=== PATIENT | male | born 1940 | race Caucasian/White ===

== ENCOUNTER 2019-03-25 17:09 | Inpatient (IN) ==
--- NOTE | 2019-03-25 18:54 | Diag Imaging Result Doc PS360 ---
EXAM: CT RENAL STONE SEARCH HISTORY: Kidney stone left TECHNIQUE: CT abdomen and pelvis without contrast COMPARISON: 03/09/2019 FINDINGS: The previously described stone is still within the left ureter although now is in the distal left ureter. There continues to be moderate to marked hydronephrosis. There are also stones within a contracted gallbladder. No bowel obstruction. No other changes to the organs in the abdomen and pelvis. Decreased constipation. IMPRESSION: 1.Persistent moderate to severe left-sided hydronephrosis although the large stone is now in the distal left ureter. 2.Cholelithiasis This exam was performed using automated exposure control, adjustment of mA or kV according to patient size, and/or use of iterative reconstruction technique. Electronically signed by Jose F Persaud 03/25/2019 6:52 PM
[2019-03-25 19:59] LABS: AGAP 12; BASO# 0.04 X1000 (0.0-0.2); BASO% 0.4 % (0.0-0.8); BUN 27 mg/dL (8-22); CALCIUM 9.4 mg/dL (8.8-10.2); CHLORIDE 103 mmol/L (98-107); COSMO 290; CREATININE 1.1 mg/dL (0.7-1.2); EOS# 0.27 X1000 (0.0-0.7); ESTIMATED GFR > 60; GLUCOSE 169 mg/dL (70-104); HEMATOCRIT 43.2 % (42.0-52.0); HEMOGLOBIN 14.4 g/dL (14.0-18.0); LYMPH# 1.76 X1000 (1.2-3.4); LYMPH% 19.3 % (20.5-51.1); MCH 31.8 PG (27-31); MCHC 33.3 g/dL (33-37); MCV 95.4 FL (81-99); MONO# 0.74 X1000 (0.11-0.59); MONO% 8.1 % (1.7-9.3); MPV 9.1 FL (7.4-10.4); NEUT# 6.29 X1000 (1.4-6.5); NEUT% 69.2 % (42.2-75.2); PLT 338 X1000 (130-400); POTASSIUM 4.2 mmol/L (3.5-5.1); RBC 4.53 XMIL (4.7-6.1); RDW 12.7 % (11.5-14.5); SODIUM 141 mmol/L (136-145); TCO2 26 mmol/L (25-35)
--- NOTE | 2019-03-25 21:27 | HISTORY AND PHYSICAL ---
CHIEF COMPLAINT: Abdominal pain, left side going to the groin since 2 weeks ago. HISTORY OF PRESENT ILLNESS: He is an 78-year-old white male who was seen in the emergency room on 03/09/2019. Apparently, the patient was seen in the emergency room and he had a workup done. The patient was sent home for diagnosis of constipation. The patient had a CT scan was done. He was sent home on the laxatives. Obviously, he was not getting better. He came to my office today as a followup. I did review the CT scan. Apparently, patient has gallstones and a 9 mm stone left proximal ureter with hydronephrosis. I did a KUB in my office, which showed the stone still present in the ureter. Constipation was better. He was seen before by Dr. Calabrese. I spoke to him on the telephone and he said to admitted to the hospital for observation and repeat CT scan and laboratory workup and we will schedule for the lithotripsy and cystoscopy in the morning. The family agreed to get admitted. As a result, a hospital admission was warranted. 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 PAST SURGICAL HISTORY: Sinus surgery, inguinal hernia repair on the right side, TURP, Pito fundoplication, left heart catheterization in 2009 with stents MEDICINES: In my office: Acyclovir 400 tablets as directed, Plavix 75 daily, Combivent 1 puff t.i.d., benazepril 10 mg daily, doxycycline 100 twice daily, Flonase as needed, folic acid 1 mg daily, methotrexate 2.5 tablets once a week, metoprolol 25 once daily, Singulair 10 daily, simvastatin 20 daily, Tricor 140 mg daily. ALLERGIES: Penicillin, sulfa, Jhony-Dur. SOCIAL HISTORY: He has been for 60 years, has 5 children. Retired from . No smoking. No alcohol. Lives in [place]. FAMILY HISTORY: Father at the age of 72 with heart attack. Mom in a house fire. HEALTH MAINTENANCE: Flu vaccine 2017, pneumococcal 2017. Last rectal exam July 2018. PSA July 2018, colonoscopy more than 10 years. REVIEW OF SYSTEMS: HEENT: No headache. No vision problem. No earache. No sore throat. Neck: No goiter. No lymphadenopathy. No bruit. Cardiopulmonary: No chest pain, shortness of breath, PND, orthopnea. GI: No nausea, vomiting, abdominal pain. : No history of hesitancy, frequency, dysuria, mostly pain in the left side. No swelling of feet. Neurologic: No focal symptoms or weakness. PHYSICAL EXAMINATION: VITAL SIGNS: Temperature is 97 degrees, pulse 62. Vitals are stable. Height is 5 feet 11, 180 pounds. HEENT: Atraumatic, normocephalic. Pupils equal, react to light. Nose and throat within normal limits. NECK: Supple. No lymphadenopathy. No goiter. CHEST: Bilateral air entry. HEART: Sounds are regular. ABDOMEN: Belly is soft, nontender. Flank tenderness noted. No signs of peritonitis. RECTAL: Deferred. NEUROLOGIC: No neurological deficits. INVESTIGATIONS: CBC: White cell count 9.1, hematocrit 43, platelet 338,000. Sodium 140, potassium 4.2, chloride 103, BUN 27, creatinine 1.2, glucose 169. ASSESSMENT AND PLAN: An 78-year-old white gentleman admitted to the hospital with left-sided flank pain due to obstructed ureter approximately 10 mm stone, no better since 2 weeks ago. The plan is to admit. IV fluids, pain control. Urology consult. CT renal stone search and reconcile home medications and we will follow up. cc: MD VIDYA Holt
[2019-03-25] MEDS: NS 1,000 ML IV SCH (22:04)
--- NOTE | 2019-03-26 07:49 | CONSULTATION ---
DATE OF CONSULTATION: 03/25/2019 ATTENDING/REFERRING PHYSICIAN: Dr. Tovar. HISTORY OF PRESENT ILLNESS: This 78-year-old male states he developed severe left flank pain several weeks ago. He was seen in the emergency room where a CT stone search revealed a large stone in the left proximal ureter causing hydronephrosis. He states he got better and decided not to follow up with his family physician as directed. He then again developed severe left flank pain yesterday. He saw Dr. Tovar where the large stone was still present. The patient has no prior history of stones. He is followed in Urology for enlarged prostate and obstructive voiding. He states that is going well. He states he needs to have the stone removed. PAST MEDICAL HISTORY: Cholelithiasis, chronic obstructive pulmonary disease, coronary artery disease, gastroesophageal reflux disease, elevated cholesterol, hearing loss, right eardrum perforation. CURRENT MEDICATIONS: Documented on his chart and include Plavix. PAST SURGICAL HISTORY: Transurethral resection of the prostate (TURP), sinus surgery, right inguinal hernia repair, Pito fundoplication, cardiac stent placement in 2009. SOCIAL HISTORY: He is allergic to penicillin, sulfa drugs and Jhony-dur. He has no current tobacco or alcohol use. REVIEW OF SYSTEMS: He states he is usually in good health. He denies any chest pains, diabetes, strokes or seizures. He states he is having some memory loss. PHYSICAL EXAMINATION: General: A mildly obese, age apparent, normally developed, white male, oriented in all ways and cooperative. HEENT: Normal for age. He is very hard of hearing. Lungs: Clear. Cardiovascular: Regular rate and rhythm. Abdomen: Protuberant soft, left flank tenderness. No guarding or rebound. No hepatosplenomegaly or masses. Genitourinary: Circumcised male. Both testes down. Scrotal exam is normal. Rectal: Deferred until surgery. Extremities: No clubbing, cyanosis, or edema. Neuro: No focal deficits. LABORATORY EVALUATION: White count of 9.1, hemoglobin 14.4, hematocrit of 43.2 and platelets are 338,000. Serum electrolytes are normal. BUN 27, creatinine 1.1. Urinalysis has positive blood on the dipstick, otherwise negative. CT renal stone search reveals a moderate left hydroureteronephrosis down to an approximate 8 to 9 mm stone in the left mid to distal ureter. IMPRESSION: Left ureteral stone causing moderate left hydronephrosis and flank pain. PLAN: Cystoscopic exam, left ureteroscopy, laser lithotripsy of the stone with basket extraction of fragments and placement of left double-J stent if needed. The planned procedure, benefits versus risks, and possible complications, including, but not limited to, bleeding, infection, not being able to get to the stone, need for further stone surgery, damage to the ureter with need for further surgery was discussed. He seems to understand and desires to proceed. cc: MD Palmer Ayala MD
[2019-03-26] MEDS: NS 1,000 ML IV SCH (10:24)
[2019-03-26] MEDS ORDERED: DIPRIVAN 1% ONE (14:59)
[2019-03-26] MEDS ORDERED: XYLOCAINE-MPF 2% ONE (14:59)
[2019-03-26] MEDS ORDERED: KEFZOL 2 GM/D5W 2 GM/50 ML IVPB ONE (15:11)
[2019-03-26] MEDS ORDERED: ZOFRAN ONE (15:33)
--- NOTE | 2019-03-26 15:57 | Diag Imaging Result Doc PS360 ---
EXAM: FLUROSCOPY CYSTO HISTORY: L URETER STONE, LASER LITHO TECHNIQUE: Eight films submitted COMPARISON: None. FINDINGS: A wire was placed into the left ureter. The stone in the distal left ureter was removed. A ureteral stent was then placed. IMPRESSION: Left ureteral stone removed with a ureteral stent placed. Electronically signed by Jose F Persaud 03/26/2019 3:55 PM
[2019-03-26] MEDS ORDERED: MORPHINE ONE (16:10)
[2019-03-26] MEDS ORDERED: ZOVIRAX PO PRN (16:59)
[2019-03-26] MEDS ORDERED: DITROPAN PO PRN (17:04)
[2019-03-26] MEDS ORDERED: TOPROL XL PO ONE (17:45)
--- NOTE | 2019-03-26 20:41 | OPERATIVE NOTE ---
PROCEDURE DATE: 03/26/2019 SURGEON: Dr. Calabrese. PREOPERATIVE DIAGNOSIS: Left distal ureteral stone with moderate obstruction and flank pain. POSTOPERATIVE DIAGNOSIS: Left distal ureteral stone with moderate obstruction and flank pain. PROCEDURE PERFORMED: Cystoscopic exam, left ureteroscopy, laser lithotripsy of stone, basket extraction of fragments, placement of left double-J stent. ANESTHESIA: General via laryngeal mask. FINDINGS: Cystoscopic exam: Urethra - greater than 21 Lithuanian, without stricture. Prostate - mild hypertrophy of the lateral lobes. Mildly elevated bladder neck. The channel was wide open. Length approximately 3 cm. Bladder - normal ureteral orifices bilaterally. No papillary lesions. Grade 1 trabeculations. No stones seen in the bladder. Left ureteroscopy - an approximate 8 mm impacted left distal stone. Rectal exam reveals a prostate of 30 to 40 g, smooth and symmetrical. INDICATION FOR PROCEDURE: This 78-year-old male, with history of renolithiasis, developed severe left flank pain. Evaluation revealed a left distal ureteral stone with moderate obstruction. DESCRIPTION OF PROCEDURE: After informed consent was obtained from the patient and him receiving IV antibiotics, he was taken the main OR cystoscopy room and placed in a supine position. General anesthesia via laryngeal mask was achieved. He was then placed in the low lithotomy position and prepped and draped in the usual sterile fashion for cystoscopic exam. A 21-Lithuanian cystoscope was passed through the patient's urethra, prostate, and into bladder with findings noted above. A 0.035 ZIPwire was passed through the cystoscope, engaged the left to orifice, advanced up into the kidney. The cystoscope was removed, leaving the ZIPwire in place to act as a safety wire. A 7- Lithuanian Storz semi-rigid ureteroscope was advanced through the patient's urethra, prostate, and in the bladder. A 0.035 Sensor wire was passed through the ureteroscope and up into the ureter. The ureteroscope was advanced over the Sensor wire, beneath the ZIPwire up to the stone. The Sensor wire was removed. A 365 micron laser fiber was placed. The laser was set at 8 hertz and 8 anders, and the stone was fragmented. A total of 288 joules was used. A 4-wire Nitinol basket was placed and several passes were made to remove stone fragments that were sent to Pathology for analysis. The ureteroscope was then advanced up to the left proximal ureter. No further stones or fragments were visualized. The ureteroscope was removed. A 6-Lithuanian, 26 cm double-J stent was passed over the ZIPwire and up into the kidney. The renal end was verified by fluoroscopic exam. Bladder end directly visualized. Bladder was drained. Cystoscope was removed. Stent removal string securely taped to the penile shaft. Rectal exam performed. Tolerated the procedure well. Estimated blood loss less than 1 mL. Was taken to recovery room in good condition. cc: MD Palmer Ayala MD
--- NOTE | 2019-03-26 20:51 | PROGRESS NOTE ---
DATE: 03/26/2019 SUBJECTIVE: The patient is feeling better and some dull pain. Seen by Dr. Calabrese. Is going to do a cystoscopy and retrieval of the stone, questionable lithotripsy. OBJECTIVE: Vital Signs: On examination, temperature is 98 degrees. Vitals are stable. HEENT: Exam within normal limits. Chest: Clear. Heart: Sounds are regular. Abdomen: Left flank tenderness noted. LABORATORY DATA: CBC, SMA 7 are normal. ASSESSMENT AND PLAN: 1. Left kidney stone, mid proximal ureteral area, 9 mm stone, slightly moved downward and with moderate hydronephrosis. Dr. Calabrese is going to do cystoscopy, retrieval, possible extracorporeal shock wave lithotripsy. 2. Reconcile home medicine. 3. Continue intravenous fluids. 4. Appreciate Dr. Calabrese' consult, and will follow up. LEVEL OF DOCUMENTATION: 25 minutes. cc: Palmer Tovar MD
[2019-03-26] MEDS ORDERED: ZOCOR PO SCH (21:00)
[2019-03-26] MEDS: DUONEB (A & A) INH SCH (22:20)
[2019-03-27] MEDS: NS 1,000 ML IV SCH (02:51)
[2019-03-27] MEDS: DUONEB (A & A) INH SCH ×2 (03:29→08:12)
[2019-03-27 08:14] VITALS: BP 151/56
[2019-03-27] MEDS ORDERED: ARICEPT PO SCH (09:00)
[2019-03-27] MEDS ORDERED: FOLIC ACID PO SCH (09:00)
[2019-03-27] MEDS ORDERED: PLAVIX PO SCH (09:00)
[2019-03-27] MEDS ORDERED: FLONASE NAS SCH (09:00)
[2019-03-27] MEDS ORDERED: TOPROL XL PO SCH (09:00)
[2019-03-27] MEDS ORDERED: CENTRUM SILVER PO SCH (09:00)
[2019-03-27] MEDS ORDERED: CULTURELLE PO SCH (09:00)
--- NOTE | 2019-03-28 16:08 | DISCHARGE SUMMARY ---
ADMISSION DATE: 03/25/2019 DISCHARGE DATE: 03/27/2019 DISCHARGING DIAGNOSIS: Left-sided abdominal pain due to 9 mm stone proximal/mid ureter with moderate hydronephrosis. SECONDARY DIAGNOSIS: 1. Asymptomatic gallstones. 2. COPD. 3. Coronary artery disease with 2 stents. 4. Mild dementia. 5. Onychomycosis. 6. Metabolic syndrome. 7. Pes planus. 8. Acid reflux disease due to hiatal hernia. 9. Deafness. 10. Hyperlipidemia. 11. Cicatricial pemphigoid in eyes, chronic perforation of right tympanic membrane. CONSULTS: Dr. Calabrese. PROCEDURES: Cystoscopy, retrograde pyelogram, double-J stent, retrieval of stone on the left side. BRIEF HISTORY: Please see the H and P that was done on 03/25/2019. In brief, he is 78-year-old white male basically admitted to the hospital with left flank pains for the last 2 weeks. He was evaluated in the ER prior to this admission. He failed to improve. As a result, a hospital admission was warranted for observation status. Follow up labs are normal. He is very tender. No symptoms or signs of infection noted. Dr. Calabrese was consulted. He did the above procedures and retrieved the stone and patient is doing very well. Dr. Calabrese is going to take the stent out on Saturday. Rest of the hospital course was uneventful. Previous CT scan findings discussed with the patient. LABS: CBC: White cell count 9.1, hematocrit 43, platelets 338,000. Sodium 141, potassium 4.2, chloride 103, BUN 27, creatinine 1.1, glucose 169. Urine cultures were negative. DISCHARGE INSTRUCTIONS ARE FOLLOWS: Aricept 10 mg daily, Flonase 1 spray in each nostril daily, folic acid 1 mg daily, Combivent 1 puff q. 6, Culturelle 1 tablet daily, methotrexate as directed by mortgage consultant for cicatricial pemphigoid, multivitamin 1 tablet daily, simvastatin 20 mg daily. Hold the acyclovir since he had a kidney stone, Plavix 75 daily, metoprolol 25 daily. Hold it since his heart rate is around 40 and we are going to monitor as an outpatient. Since he has a CAD, he needs beta blockers and low oxalate products. Follow up with Dr. Calabrese on Saturday to remove the stent as well as in my office. cc: MD Dr. Bharati Holt
[2019-03-30] MEDS ORDERED: METHOTREXATE PO SCH (09:00)
== END 2019-03-27 09:08 | disposition home or self-care (01) | DRG 661 ==
LOC: DIRADM 17:09 → 1N 18:17 → EDIPHOLD 18:20 → 1N 20:52
PROVIDERS: ADMIT Internal Medicine; ATTEND Internal Medicine